=== PATIENT | female | born 1970 | race Caucasian/White ===

== ENCOUNTER 2017-09-29 21:43 | Emergency (ER) | payer OTHER ==
[2017-09-30] MEDS: DEXAMETHASONE 10 MG/ML 1 ML INJ IM (00:41)
[2017-09-30] MEDS: KETOROLAC 60 MG INJ IM (01:21)
== END 2017-09-30 01:58 | disposition home or self-care (01) ==
LOC: FTE 21:43
DX: M54.41 Lumbago with sciatica, right side (principal); J45.909 Unspecified asthma, uncomplicated
CPT/HCPCS: 81025; 96372; 99284-25